=== PATIENT | male | born 1935 | race Caucasian/White ===

== ENCOUNTER 2017-02-20 21:16 | Emergency (ER) | payer MEDICARE, OTHER ==
[2017-02-20 21:39] VITALS: O2SAT 98
[2017-02-20] MEDS ORDERED: Sodium Chloride 0.9% 1000 ML 1,000 ML IV SCH (22:15)
--- NOTE | 2017-02-20 22:17 | ERPHSYRPT ---
- History of Present Illness Time Seen by Provider: 02/20/17 21:30 Source: patient, family Patient Subjective Stated Complaint: pt c/o low blood pressure and dizziness since dialysis today. states bp was low at dialysis and they gave him some extra fluid. Triage Nursing Assessment: pt alert and oriented, answers questions approp. pt arrive per ambulance and transfer to stretcher with assist of 3. moves well in bed. respirations nonlabored with lungs cta. pupisl equal and reactive. bilat upper and lower ext equal. colostomy to llq. dialysis fistula to lt upper arm with thrill and bruit present. Physician History: PATIENT WITH A HISTORY OF CHRONIC RENAL FAILURE, HEMODIALYSIS WITH COMPLAINS OF LOW BLOOD PRESSURE AND DIZZINESS UPON STANDING FOR THE PAST 3-4 MONTHS. REMAINS SYMPTOMATIC AFTER DIURETIC LASIX AND COREG DISCONTINUED. HAD DIALYSIS TODAY AND FEELS DIZZY AFTER STANDING. DENIES CHEST PAIN, HEADACHE, BLURRED VISION. Timing/Duration: constant (3-4 MONTHS) Severity: moderate Character of Deficits: other (DIZZINESS UPON STANDING) Deficits: decrease ability to stand Baseline/Normal Cognition: alert oriented x 3 Current Cognition: alert oriented x 3 Associated Symptoms: other (DIZZINESS UPON STANDING) Allergies/Adverse Reactions: Penicillins Allergy (Intermediate, Verified 01/25/14 08:30) ciprofloxacin [From Cipro] Adverse Reaction (Verified 02/20/17 21:39) Nausea and Vomiting Home Medications: Amitriptyline HCl 25 mg [Elavil 25 mg] 50 mg PO DAILY 01/25/14 [History] Escitalopram Oxalate 40 mg PO DAILY 01/25/14 [History] Lorazepam 0.5 mg [Ativan 0.5 MG] 1 tab PO TID PRN PRN 01/25/14 [History] Gabapentin [Neurontin] 100 mg PO HS 02/18/17 [History] Mv-Mn/Iron/Folic Acid/Herb 190 [Vitamin D3 Complete Caplet] 1 each PO WEEKLY 07/06 [History] B Complex W-C No.20/Folic Acid [Nephrocaps Softgel] 1 mg PO DAILY 02/20/17 [ History] Methocarbamol [Robaxin-750] 750 mg PO BID 02/20/17 [History] Omeprazole 20 MG [Prilosec 20 mg] 20 mg PO DAILY 02/20/17 [History] Sevelamer Carbonate [Renvela] 800 mg PO DAILY 02/20/17 [History] Hx Tetanus, Diphtheria Vaccination/Date Given: Yes Hx Influenza Vaccination/Date Given: No Hx Pneumococcal Vaccination/Date Given: No Immunizations Up to Date: Yes - Review of Systems Constitutional: No Fever, No Chills Eyes: No Symptoms Ears, Nose, & Throat: No Symptoms Respiratory: No Symptoms, No Cough, No Dyspnea Cardiac: No Symptoms, No Chest Pain, No Edema, No Syncope Abdominal/Gastrointestinal: No Symptoms, No Abdominal Pain, No Nausea, No Vomiting, No Diarrhea Genitourinary Symptoms: No Symptoms, No Dysuria Musculoskeletal: No Symptoms, No Back Pain, No Neck Pain Skin: No Symptoms, No Rash Neurological: No Dizziness (UPON STANDING), No Focal Weakness, No Sensory Changes Psychological: No Symptoms Endocrine: No Symptoms All Other Systems: Reviewed and Negative - Past Medical History Pertinent Past Medical History: Yes Neurological History: No Pertinent History ENT History: Cataracts Cardiac History: Coronary Artery Disease, High Cholesterol, Hypertension Respiratory History: No Pertinent History Endocrine Medical History: No Pertinent History Musculoskeletal History: Arthritis GI Medical History: Colorectal Cancer History: Renal Disease Psycho-Social History: No Pertinent History Male Reproductive Disorders: No Pertinent History - Past Surgical History Past Surgical History: Yes Neuro Surgical History: No Pertinent History Cardiac: CABG Respiratory: No Pertinent History Gastrointestinal: Appendectomy, Cholecystectomy, Colon Resection, Hernia Repair Genitourinary: No Pertinent History Musculoskeletal: No Pertinent History Male Surgical History: No Pertinent History - Social History Smoking Status: Never smoker Exposure to second hand smoke: No Drug Use: none Patient Lives Alone: No - Nursing Vital Signs Nursing Vital Signs: Initial Vital Signs Temperature 98.5 F 02/20/17 21:17 Pulse Rate 87 02/20/17 21:17 Respiratory Rate 16 02/20/17 21:17 Blood Pressure 117/49 02/20/17 21:17 O2 Sat by Pulse Oximetry 98 02/20/17 21:17 Pain Scale Pain Intensity 0 - Myesha Coma Scale Best Eye Response ([place]): (4) open spontaneously Best Verbal Response ([place]): (5) oriented Best Motor Response ([place]): (3) flexion to pain Myesha Total: 12 - Physical Exam General Appearance: no apparent distress Eye Exam: bilateral eye: normal inspection, PERRL Ears, Nose, Throat Exam: normal ENT inspection Neck Exam: normal inspection Respiratory: normal breath sounds Cardiovascular: regular rate/rhythm, normal heart sounds Gastrointestinal: soft, normal bowel sounds Male Genitalia: other (NONTENDER) Back Exam: normal inspection Extremity Exam: normal inspection Peripheral Pulses: carotid (R): 2+, carotid (L): 2+, femoral (R): 2+, femoral (L ): 2+, dorsalis-pedis (R): 2+, dorsalis-pedis (L): 2+ Mental Status: alert, oriented x 3 recreation establishment manager Exam: normal hearing, normal speech DTR: bicep (R): 2+, bicep (L): 2+, tricep (R): 2+, tricep (L): 2+, knee (R): 2+ , knee (L): 2+, ankle (R): 2+, ankle (L): 2+ Skin Exam: normal color SpO2 Interpretation: normal SpO2: 98 Oxygen Delivery: Room Air - Course EKG Interpreted by Me: RATE, NORMAL AXIS, Non-specific ST Changes ( INTRAVENTRICULAR CONDUCTION DELAY), Other (SINUS ARRHYTHMIA) - Radiology Exams Chest X-ray Interpretation: Interpreted by me (MILD CARDIOMEGALY, PREVIOUS STERNOTOMY , ELEVATION RIGHT HEMIDIAPHRAM) Ordered Tests: Active Orders 24 hr Category Date Time Status Assembler Tubing STAT Care 02/20/17 22:14 Active EKG-ER Only STAT Care 02/20/17 22:13 Active CHEST 1 VIEW (PORTABLE) Stat Exams 02/20/17 22:14 Taken CBC W DIFF Stat Lab 02/20/17 22:00 Completed CMP Stat Lab 02/20/17 22:00 Completed MAGNESIUM Stat Lab 02/20/17 22:00 Completed Manual Differential NC Stat Lab 02/20/17 22:00 Completed TROPONIN Q3H Lab 02/20/17 22:00 Completed TROPONIN Q3H Lab 02/21/17 01:15 Ordered TROPONIN Q3H Lab 02/21/17 04:15 Ordered TROPONIN Q3H Lab 02/21/17 07:15 Ordered TROPONIN Q3H Lab 02/21/17 10:15 Ordered Medication Summary Generic Name Dose Route Start Last Admin Trade Name Freq PRN Reason Stop Dose Admin Sodium Chloride 1,000 mls @ 100 mls/hr 02/20/17 22:15 02/20/17 22:50 Sodium Chloride 0.9% 1000 Ml IV 03/22/17 22:14 100 mls/hr .Q10H ROSITA Administration Discontinued Medications Generic Name Dose Route Start Last Admin Trade Name Freq PRN Reason Stop Dose Admin Midodrine 5 mg 02/20/17 23:04 Proamatine 5 Mg PO 02/20/17 23:05 STAT STA Lab/Rad Data: Laboratory Result Diagrams 02/20/17 22:00 02/20/17 22:00 Laboratory Results 02/20/17 02/20/17 02/20/17 Range/Units 22:00 22:00 22:00 WBC 8.7 (4.0-10.5) K/mm3 RBC 2.76 L (4.1-5.6) M/mm3 Hgb 11.2 L (12.5-18.0) gm/dl Hct 31.9 L (42-50) % MCV 115.6 H (78-100) fl MCH 40.5 H (26-32) pg MCHC 35.1 (32-36) g/dl RDW 16.3 H (11.5-14.0) % Plt Count 240 (150-450) K/mm3 MPV 10.1 H (6-9.5) fl Sodium 139 (136-145) mEq/L Potassium 3.8 (3.5-5.1) mEq/L Chloride 95 L (98-107) mEq/L Carbon Dioxide 32.2 H (21-32) mEq/L Anion Gap 16.0 H (5-15) MEQ/L BUN 18 (9-20) mg/dL Creatinine 3.99 H (0.55-1.30) mg/dl Estimated GFR 15 ML/MIN Glucose 200 H (70-110) MG/DL Calcium 9.2 (8.5-10.1) mg/dL Magnesium 1.8 (1.8-2.4) mg/dL Total Bilirubin 1.00 (0.2-1.0) mg/dL AST 42 H (15-37) U/L ALT 37 (12-78) U/L Alkaline Phosphatase 138 H (46-116) U/L Troponin I < 0.017 (0.000-0.056) ng/ml Serum Total Protein 7.2 (6.4-8.2) gm/dL Albumin 3.7 (3.4-5.0) g/dL - Progress Progress Note: 02/21/17 00:02 ADMINISTERED MIDODRINE 5MG ORALLY Will see patient in: other (DISCUSSED WITH DR ARRIAGA PATENT ENGINEER AT 2300 WHO RECOMMENDS MIDODRINE 5 MG TID FOR 2 WEEKS.) Counseled pt/family regarding: lab results, diagnosis, need for follow-up, rad results - Departure Time of Disposition: 00:10 Departure Disposition: Home Clinical Impression: Orthostatic hypotension dysautonomic syndrome, CHRONIC RENAL FAILURE Condition: Stable Critical Care Time: No Referrals: CALOS GORMAN [Primary Care Provider] - Additional Instructions: BEGIN MIDODRINE 5MG EVERY 8 HOURS TO HELP INCREASE BLOOD PRESSURE. CALL YOUR PATENT ENGINEER TODAY TO SCHEDULE APPOINTMENT. USE WHEELCHAIR ONLY WITH ASSISTANCE WITH STANDING. Prescriptions: Midodrine HCl 5 mg [Proamatine 5 mg] 5 mg PO TID #30 tablet
[2017-02-20 22:19] LABS: Mean Cell Volume 115.6 fl (78-100); Mean Platelet Volume 10.1 fl (6-9.5); Platelet Count 240 K/mm3 (150-450); Red Blood Count 2.76 M/mm3 (4.1-5.6); Red Cell Distribution Width 16.3 % (11.5-14.0); White Blood Count 8.7 K/mm3 (4.0-10.5)
[2017-02-20 22:28] LABS: ALBUMIN 3.7 g/dL (3.4-5.0); Carbon Dioxide 32.2 mEq/L (21-32); MAGNESIUM 1.8 mg/dL (1.8-2.4); Potassium 3.8 mEq/L (3.5-5.1); Total Protein 7.2 gm/dL (6.4-8.2)
[2017-02-20 22:37] LABS: Mean Corpuscular Hemoglobin 40.5 pg (26-32)
[2017-02-20] MEDS ORDERED: Sodium Chloride 0.9% 1000 ML 1,000 ML ONE (22:48)
[2017-02-20] MEDS ORDERED: PROAMATINE 5 MG PO STA (23:04)
[2017-02-21 00:37] VITALS: BP 117/54; PULSE 70
[2017-02-21 00:51] LABS: ANISOCYTOSIS 1+; Eosinophil 2 % (0.00-3.0); Macrocytosis 1+; Platelet Estimate NORMAL (NORMAL); Total Cells Counted 100
--- NOTE | 2017-02-21 09:21 | XRAY ---
Indication: Dizziness. Comparison: None Portable apical lordotic chest demonstrates blunting of the right costophrenic angle, a few calcified granulomas, and previous CABG surgery. Remaining lungs clear. Heart is not enlarged for AP portable technique. Bony thorax intact with mild osteopenia and degenerative changes. Impression: Nonacute chest.
== END 2017-02-21 00:40 | disposition home or self-care (01) ==
LOC: ED 21:16
DX: I95.1 Orthostatic hypotension (principal); N18.9 Chronic kidney disease, unspecified; R42 Dizziness and giddiness; Z99.2 Dependence on renal dialysis; Z79.899 Other long term (current) drug therapy; I10 Essential (primary) hypertension; E78.00 Pure hypercholesterolemia, unspecified; I25.10 Atherosclerotic heart disease of native coronary artery without angina pectoris; Z95.1 Presence of aortocoronary bypass graft
CPT/HCPCS: 36415; 71010; 80053; 83735; 84484; 85025; 93005; 93041; 96360; 96361; 99284; A9270-GY

== ENCOUNTER 2017-04-08 08:20 | Emergency (ER) | payer MEDICARE, OTHER ==
[2017-04-08] MEDS ORDERED: Zofran 4 MG/2 ML VIAL IV ONE (09:08)
[2017-04-08] MEDS ORDERED: Zofran 4 MG/2 ML VIAL ONE (09:13)
[2017-04-08 09:14] LABS: Lactic Acid 2.1 (0.4-2.0)
--- NOTE | 2017-04-08 09:22 | ERPHSYRPT ---
- History of Present Illness Time Seen by Provider: 04/08/17 09:01 Source: patient Exam Limitations: no limitations Patient Subjective Stated Complaint: pt states he has had vomiting for the past 1 week. pt states he feels nauseated. pt has a colostomy from colon cnacer and also takes kidney dialysis on Sat, Sat, Sat. Triage Nursing Assessment: pt ashen, warm, dry. abdomen soft non-tender. colostomy noted to left quad. pt afebrile. bowel sounds present. Physician History: 81 y/o male with history of colon cancer with colostomy and ESRD on HD Sat/Sat/ Sat comes to the ER with complaints of nausea and vomiting for the past week. Pt states he has been vomiting 3-4 times per day and twice this morning. Pt mentions he has occasional diffuse abdominal pain. Pt had HD yesterday and says he had a temperature of 94. Pt admits that he has had increase drainage of a right leg wound, left ankle wound and sacral decubitus ulcer since stopping vibramycin. Pt states that he has been having runny nose but denies any cough, shortness of breath, chest pain, cough, or urinary symptoms. Timing/Duration: day(s) Severity: mild Associated Symptoms: nausea, vomiting, abdominal pain Allergies/Adverse Reactions: Penicillins Allergy (Intermediate, Verified 04/08/17 08:29) ciprofloxacin [From Cipro] Adverse Reaction (Verified 04/08/17 08:29) Nausea and Vomiting Home Medications: Amitriptyline HCl 25 mg [Elavil 25 mg] 50 mg PO DAILY 01/25/14 [History] Escitalopram Oxalate 40 mg PO DAILY 01/25/14 [History] Lorazepam 0.5 mg [Ativan 0.5 MG] 1 tab PO TID PRN PRN 01/25/14 [History] Mv-Mn/Iron/Folic Acid/Herb 190 [Vitamin D3 Complete Caplet] 1 each PO WEEKLY 07/06 [History] Methocarbamol [Robaxin-750] 750 mg PO BID 02/20/17 [History] Omeprazole 20 MG [Prilosec 20 mg] 20 mg PO DAILY 02/20/17 [History] Sevelamer Carbonate [Renvela] 800 mg PO DAILY 02/20/17 [History] B Complex W-C No.20/Folic Acid [Triphrocaps Softgel] 1 mg DAILY 04/08/17 [ History] Lamotrigine 100 mg [lamICTAL 100MG TABLET] 100 mg BID 04/08/17 [History] Levothyroxine Sodium 75 Mcg [Synthroid 75 Mcg] 75 mcg DAILY 04/08/17 [ History] Tizanidine HCl 4 mg [Zanaflex 4 MG] 4 mg DAILY 04/08/17 [History] Hx Tetanus, Diphtheria Vaccination/Date Given: Yes (up to date) Hx Influenza Vaccination/Date Given: Yes Hx Pneumococcal Vaccination/Date Given: Yes Immunizations Up to Date: Yes - Review of Systems Constitutional: Chills, Malaise, Weakness, No Fever Eyes: No Symptoms Ears, Nose, & Throat: No Symptoms, Nose Discharge Respiratory: Dyspnea on Exertion ([place]), No Cough, No Dyspnea Cardiac: No Chest Pain, No Edema, No Syncope Abdominal/Gastrointestinal: Abdominal Pain, Nausea, Vomiting, No Diarrhea Genitourinary Symptoms: No Dysuria, No Frequency, No Hematuria Musculoskeletal: No Back Pain, No Neck Pain Skin: Cellulitis, Skin Lesions, No Rash Neurological: No Dizziness, No Focal Weakness, No Sensory Changes Psychological: No Symptoms Endocrine: No Symptoms All Other Systems: Reviewed and Negative - Past Medical History Pertinent Past Medical History: Yes Neurological History: No Pertinent History ENT History: Cataracts Cardiac History: Coronary Artery Disease, High Cholesterol, Hypertension Respiratory History: No Pertinent History Endocrine Medical History: No Pertinent History Musculoskeletal History: Arthritis GI Medical History: Colorectal Cancer History: Renal Disease Psycho-Social History: No Pertinent History Male Reproductive Disorders: No Pertinent History - Past Surgical History Past Surgical History: Yes Neuro Surgical History: No Pertinent History Cardiac: CABG Respiratory: No Pertinent History Gastrointestinal: Appendectomy, Cholecystectomy, Colon Resection, Hernia Repair Genitourinary: No Pertinent History Musculoskeletal: No Pertinent History Male Surgical History: No Pertinent History - Social History Smoking Status: Never smoker Exposure to second hand smoke: No Drug Use: none Patient Lives Alone: No - Nursing Vital Signs Nursing Vital Signs: Initial Vital Signs Temperature 98.6 F 04/08/17 08:38 Pulse Rate 94 H 04/08/17 08:38 Respiratory Rate 20 04/08/17 08:38 Blood Pressure 137/72 04/08/17 08:38 O2 Sat by Pulse Oximetry 97 04/08/17 08:38 Pain Scale Pain Intensity 0 - Physical Exam General Appearance: no apparent distress, alert, cachetic Eye Exam: PERRL/EOMI, eyes nml inspection Ears, Nose, Throat Exam: normal ENT inspection, TMs normal, pharynx normal, moist mucous membranes Neck Exam: normal inspection, non-tender, supple, full range of motion Respiratory Exam: normal breath sounds, lungs clear, No respiratory distress Cardiovascular Exam: regular rate/rhythm, normal heart sounds, normal peripheral pulses Gastrointestinal/Abdomen Exam: soft, normal bowel sounds, No tenderness, No mass Back Exam: normal inspection, normal range of motion, No CVA tenderness, No vertebral tenderness Extremity Exam: pelvis stable, swelling, tenderness Neurologic Exam: alert, oriented x 3, cooperative, normal mood/affect, nml cerebellar function, nml station & gait, sensation nml, No motor deficits Skin Exam: warm, dry, decubitus, ecchymosis, No rash Lymphatic Exam: No adenopathy SpO2: 97 Oxygen Delivery: Room Air - Course Nursing assessment & vital signs reviewed: Yes EKG Interpreted by Me: RATE, Left [place] Deviation (hr 86), Right Bundle Branch Block Ordered Tests: Active Orders 24 hr Category Date Time Status Pharmacology Teacher STAT Care 04/08/17 09:35 Active EKG-ER Only STAT Care 04/08/17 09:08 Active IV Insertion STAT Care 04/08/17 09:08 Active NPO (ED) STAT Care 04/08/17 09:08 Active ABDOMEN AND PELVIS W/0 CONTRAS [CT] Stat Exams 04/08/17 09:09 Completed CHEST 1 VIEW (PORTABLE) Stat Exams 04/08/17 09:09 Completed FOOT (MINIMUM 3 VIEWS) Stat Exams 04/08/17 Completed LOWER LEG Stat Exams 04/08/17 Completed AMYLASE Stat Lab 04/08/17 09:34 Completed BLOOD CULTURE Stat Lab 04/08/17 09:20 Received CBC W DIFF Stat Lab 04/08/17 09:34 Completed CMP Stat Lab 04/08/17 09:34 Completed CULTURE,WOUND Stat Lab 04/08/17 08:40 Received CULTURE,WOUND Stat Lab 04/08/17 09:40 Received CULTURE,WOUND Stat Lab 04/08/17 09:40 Received LIPASE Stat Lab 04/08/17 09:34 Completed Lactic Acid Stat Lab 04/08/17 09:08 Completed Lactic Acid Stat Lab 04/08/17 11:14 Completed TROPONIN Q3H Lab 04/08/17 09:34 Completed TROPONIN Q3H Lab 04/08/17 12:10 Received TROPONIN Q3H Lab 04/08/17 15:15 Ordered TROPONIN Q3H Lab 04/08/17 18:15 Ordered TROPONIN Q3H Lab 04/08/17 21:15 Ordered UA W/RFX UR CULTURE Stat Lab 04/08/17 09:09 Ordered Medication Summary Generic Name Dose Route Start Last Admin Trade Name Freq PRN Reason Stop Dose Admin Sodium Chloride 1,000 mls @ 150 mls/hr 04/08/17 11:30 04/08/17 11:38 Sodium Chloride 0.9% 1000 Ml IV 05/08/17 11:29 150 mls/hr .Q6H40M ROSITA Administration Vancomycin HCl 1 gm in 250 mls @ 167 mls/hr 04/08/17 11:26 04/08/17 11:38 Vancomycin 1gm/ Ns 250ml IV 04/08/17 12:55 167 mls/hr STAT ONE Administration Discontinued Medications Generic Name Dose Route Start Last Admin Trade Name Freq PRN Reason Stop Dose Admin Vancomycin HCl Confirm 04/08/17 11:35 Vancomycin 1gm/ Ns 250ml Administered 04/08/17 11:36 Dose 250 mls @ ud IV .STK-MED ONE Ondansetron HCl 4 mg 04/08/17 09:08 04/08/17 09:31 Zofran 4 Mg/2 Ml Vial IV 04/08/17 09:09 4 mg STAT ONE Administration Ondansetron HCl Confirm 04/08/17 09:13 Zofran 4 Mg/2 Ml Vial Administered 04/08/17 09:14 Dose 4 mg .ROUTE .STK-MED ONE Lab/Rad Data: Laboratory Result Diagrams 04/08/17 09:34 04/08/17 09:34 Laboratory Results 04/08/17 04/08/17 04/08/17 Range/Units 11:14 09:34 09:34 WBC (4.0-10.5) K/mm3 RBC (4.1-5.6) M/mm3 Hgb (12.5-18.0) gm/dl Hct (42-50) % MCV (78-100) fl MCH (26-32) pg MCHC (32-36) g/dl RDW (11.5-14.0) % Plt Count (150-450) K/mm3 MPV (6-9.5) fl Gran % (36.0-66.0) % Lymphocytes % (24.0-44.0) % Monocytes % (0.0-12.0) % Eosinophils % (0.00-5.0) % Basophils % (0.0-0.4) % Basophils # (0-0.4) Sodium (136-145) mEq/L Potassium (3.5-5.1) mEq/L Chloride (98-107) mEq/L Carbon Dioxide (21-32) mEq/L Anion Gap (5-15) MEQ/L BUN (9-20) mg/dL Creatinine (0.55-1.30) mg/dl Estimated GFR ML/MIN Glucose (70-110) MG/DL Lactic Acid 1.1 (0.4-2.0) Calcium (8.5-10.1) mg/dL Total Bilirubin (0.2-1.0) mg/dL AST (15-37) U/L ALT (12-78) U/L Alkaline Phosphatase (46-116) U/L Troponin I 0.041 (0.000-0.056) ng/ml Serum Total Protein (6.4-8.2) gm/dL Albumin (3.4-5.0) g/dL Amylase (25-115) U/L Lipase (73-393) U/L Influenza Type A Ag NEGATIVE (NEGATIVE) Influenza Type B Ag NEGATIVE (NEGATIVE) RSV (PCR) NEGATIVE (Negative) 04/08/17 04/08/17 04/08/17 Range/Units 09:34 09:34 09:08 WBC 9.3 (4.0-10.5) K/mm3 RBC 3.19 L (4.1-5.6) M/mm3 Hgb 12.1 L (12.5-18.0) gm/dl Hct 37.1 L (42-50) % MCV 116.3 H (78-100) fl MCH 37.9 H (26-32) pg MCHC 32.6 (32-36) g/dl RDW 15.4 H (11.5-14.0) % Plt Count 282 (150-450) K/mm3 MPV 9.9 H (6-9.5) fl Gran % 67.5 H (36.0-66.0) % Lymphocytes % 17.0 L (24.0-44.0) % Monocytes % 14.5 H (0.0-12.0) % Eosinophils % 0.7 (0.00-5.0) % Basophils % 0.3 (0.0-0.4) % Basophils # 0.03 (0-0.4) Sodium 139 (136-145) mEq/L Potassium 3.6 (3.5-5.1) mEq/L Chloride 95 L (98-107) mEq/L Carbon Dioxide 31.4 (21-32) mEq/L Anion Gap 16.3 H (5-15) MEQ/L BUN 26 H (9-20) mg/dL Creatinine 6.56 H (0.55-1.30) mg/dl Estimated GFR 9 ML/MIN Glucose 143 H (70-110) MG/DL Lactic Acid 2.1 H (0.4-2.0) Calcium 9.8 (8.5-10.1) mg/dL Total Bilirubin 0.70 (0.2-1.0) mg/dL AST 20 (15-37) U/L ALT 22 (12-78) U/L Alkaline Phosphatase 93 (46-116) U/L Troponin I (0.000-0.056) ng/ml Serum Total Protein 7.6 (6.4-8.2) gm/dL Albumin 3.4 (3.4-5.0) g/dL Amylase 64 (25-115) U/L Lipase 124 (73-393) U/L Influenza Type A Ag (NEGATIVE) Influenza Type B Ag (NEGATIVE) RSV (PCR) (Negative) - Progress Progress: improved Progress Note: 04/08/17 12:[address] abd/pelvis and CXR do not show any acute findings. The leg and foot xray do not show any signs of osteomyelitis. The flu and RSV are also negative. No white count but the lactic acid was initially 2.1. Urinalysis is pending but with the patient having multiple areas of possible cellulitis as well as a temperature of 94 from yesterday. Pt has been started on vancomycin. Pt has been accepted by hospitalist, Dr Morillo at [facility]. 04/08/17 12:15 - Departure Time of Disposition: 12:17 Departure Disposition: Transfer Clinical Impression: Cellulitis Qualifiers: Site of cellulitis: extremity Site of cellulitis of extremity: lower extremity Laterality: left Qualified Code(s): L03.116 - Cellulitis of left lower limb Condition: Stable Critical Care Time: Yes Critical Care Time(excluding separately billable procedures): 75-104 minutes Referrals: CALOS GORMAN [Primary Care Provider] -
[2017-04-08 09:47] LABS: BASOPHIL % 0.3 % (0.0-0.4); Eosinophil % 0.7 % (0.00-5.0); Granulocytes % 67.5 % (36.0-66.0); Mean Cell Volume 116.3 fl (78-100); Mean Corpuscular Hemoglobin 37.9 pg (26-32); Mean Platelet Volume 9.9 fl (6-9.5); Monocytes % 14.5 % (0.0-12.0); Platelet Count 282 K/mm3 (150-450); Red Blood Count 3.19 M/mm3 (4.1-5.6); Red Cell Distribution Width 15.4 % (11.5-14.0); White Blood Count 9.3 K/mm3 (4.0-10.5)
[2017-04-08 09:56] LABS: ALBUMIN 3.4 g/dL (3.4-5.0); ANION GAP 16.3 MEQ/L (5-15); BILIRUBIN,TOTAL 0.7 mg/dL (0.2-1.0); Carbon Dioxide 31.4 mEq/L (21-32); Potassium 3.6 mEq/L (3.5-5.1); Total Protein 7.6 gm/dL (6.4-8.2)
--- NOTE | 2017-04-08 10:09 | XRAY ---
Indication: Nausea and vomiting. Comparison: February 20, 2017. Portable chest clear again with a few incidental calcified granulomas. Heart is not enlarged again with previous CABG surgery. No new/acute findings.
--- NOTE | 2017-04-08 10:13 | XRAY ---
Indication: Nausea and vomiting. Multiple contiguous as images obtained through the abdomen and pelvis without contrast as ordered. Comparison: None Lung bases demonstrates mild bibasilar dependent atelectasis and right base calcified granuloma. Heart is not enlarged. Noncontrasted stomach and bowel loops appear nonobstructed with left lower quadrant diverting colostomy. No free fluid/air. Previous cholecystectomy. A few tiny calcified splenic granulomas. Both kidneys are atrophic with bilateral renal cysts. No free fluid/air. Remaining liver, pancreas, spleen, adrenal glands, kidneys, ureters, and bladder appear unremarkable for noncontrast exam. Moderate aortoiliac calcifications without AAA. Osseous structures intact with moderate degenerative changes throughout the spine. Bilateral L5 spondylolysis with 5 mm spondylolisthesis. Impression: 1. No acute intra-abdominal/pelvic abnormalities on this noncontrast exam. 2. Left lower quadrant colostomy without complications. 3. Bilateral renal atrophy, bilateral renal cysts, and bilateral L5 spondylolysis with grade 1 spondylolisthesis. CTDI 16.89
[2017-04-08] MEDS ORDERED: Vancomycin 1GM/ Ns 250ML*** 1 GM/250 ML IVPB IV ONE (11:26)
[2017-04-08] MEDS ORDERED: Sodium Chloride 0.9% 1000 ML 1,000 ML IV SCH (11:30)
[2017-04-08] MEDS ORDERED: Sodium Chloride 0.9% 1000 ML 1,000 ML ONE (11:34)
[2017-04-08] MEDS ORDERED: Vancomycin 1GM/ Ns 250ML*** 250 ML IV ONE (11:35)
--- NOTE | 2017-04-08 11:38 | XRAY ---
Indication: Pain.Osteomyelitis. Comparison:None 3 nonweightbearing views of the left foot demonstrates mild osteopenia and tiny heel spurs. No other bony, articular, or soft tissue abnormalities.
--- NOTE | 2017-04-08 11:38 | XRAY ---
Indication: Pain.Osteomyelitis. Comparison:None 2 views of the right lower leg demonstrates mild osteopenia, tiny heel spurs, and scattered vascular calcifications. No other bony, articular, or soft tissue abnormalities.
[2017-04-08] MEDS ORDERED: Sodium Chloride 0.9% 250 ML 250 ML IV SCH (12:30)
[2017-04-08 13:19] VITALS: BP 128/53; PULSE 85; O2SAT 95
== END 2017-04-08 13:40 ==
LOC: ED 08:20
DX: L03.116 Cellulitis of left lower limb (principal); R11.2 Nausea with vomiting, unspecified; Z93.3 Colostomy status; Z85.038 Personal history of other malignant neoplasm of large intestine; N18.6 End stage renal disease; Z99.2 Dependence on renal dialysis; Z79.899 Other long term (current) drug therapy
CPT/HCPCS: 36000; 36415; 71010; 73590; 73630; 74176; 80053; 82150; 83605; 83690; 84484; 85025; 87040; 87070; 87631; 93005; 93041; 96360; 96361; 96365; 96374; 99283; 99285; J2405; J3370

== ENCOUNTER 2017-08-05 18:07 | Emergency (ER) | payer MEDICARE, OTHER ==
[2017-08-05] MEDS ORDERED: PROVENTIL 2.5 MG/3 ML NEB IH ONE ×2 (18:23→18:59)
[2017-08-05] MEDS ORDERED: Lasix 40 MG/4 ML IV ONE (18:26)
--- NOTE | 2017-08-05 18:33 | ERPHSYRPT ---
- History of Present Illness Source: patient Exam Limitations: no limitations Patient Subjective Stated Complaint: PT states "I have this horrible cough all night and all day and I cannot lay down and It is just driving me crazy." Triage Nursing Assessment: Pt alert and oriented X 3, skin pwd. Pt ambulates without difficulty, able to speak in clear full sentences. PT due for dialysis today but did not go. he goes [facility]. Pt coughing intermittantly, dry cough. Timing/Duration: other (symptoms since last night) Severity: moderate Modifying Factors: Improves With: nothing Associated Symptoms: shortness of breath, cough, chest pain (pain in the anterior chest with couging), No nausea, No vomiting, No abdominal pain, No heartburn, No diaphoresis, No chills, No fever, No headaches, No loss of appetite, No malaise, No rash, No syncope, No seizure, No weakness Hx Tetanus, Diphtheria Vaccination/Date Given: Yes Hx Influenza Vaccination/Date Given: Yes Hx Pneumococcal Vaccination/Date Given: Yes Immunizations Up to Date: Yes <FELA BURCH - Last Filed: 08/05/17 19:22> <JUSTIN LACKEY - Last Filed: 08/05/17 20:52> - History of Present Illness Time Seen by Provider: 08/05/17 18:27 Physician History: This is a 82-year-old white male he arrives with complaint of feeling short of breath all night long since last night he states he is having pain in his anterior chest with coughing. He states he is unable to lay down secondary to his coughing and shortness of breath he has not had a fever. Patient does have a history of end-stage renal failure and is on dialysis last dialysis was last Saturday patient was scheduled for dialysis today but he did not go because he was not feeling well. He has not had a fever. Past medical history includes cataracts, coronary artery disease, hyperlipidemia , high blood pressure, colorectal cancer, end-stage renal failure on dialysis. Past surgical history includes CABG, appendectomy, cholecystectomy, colon resection, hernia repair. . (FELA BURCH) Allergies/Adverse Reactions: Penicillins Allergy (Intermediate, Verified 08/05/17 18:26) ciprofloxacin [From Cipro] Adverse Reaction (Verified 08/05/17 18:26) Nausea and Vomiting Home Medications: Amitriptyline HCl 25 mg [Elavil 25 mg] 50 mg PO DAILY 01/25/14 [History] Escitalopram Oxalate 40 mg PO DAILY 01/25/14 [History] Lorazepam 0.5 mg [Ativan 0.5 MG] 1 tab PO TID PRN PRN 01/25/14 [History] Mv-Mn/Iron/Folic Acid/Herb 190 [Vitamin D3 Complete Caplet] 1 each PO WEEKLY 07/06 [History] Omeprazole 20 MG [Prilosec 20 mg] 20 mg PO DAILY 02/20/17 [History] Levothyroxine Sodium 75 Mcg [Synthroid 75 Mcg] 75 mcg PO DAILY 04/08/17 [ History] Tizanidine HCl 4 mg [Zanaflex 4 MG] 4 mg PO DAILY 04/08/17 [History] Amlodipine Besylate [Amlodipine Besylate] 5 mg PO DAILY 08/05/17 [History] B Complex W-C No.20/Folic Acid [Triphrocaps Softgel] 1 mg PO DAILY 08/05/17 [ History] Cyproheptadine HCl 4 mg PO DAILY 08/05/17 [History] Temazepam 15 mg [Restoril 15 MG] 15 mg PO HS 08/05/17 [History] - Review of Systems Constitutional: No Fever, No Chills Eyes: No Symptoms Ears, Nose, & Throat: No Symptoms Respiratory: Cough, Dyspnea, Dyspnea on Exertion (RUBIO) Cardiac: Chest Pain (pain in anterior chest with coughing) Abdominal/Gastrointestinal: No Abdominal Pain, No Nausea, No Vomiting, No Diarrhea Genitourinary Symptoms: No Dysuria Musculoskeletal: No Back Pain, No Neck Pain Skin: No Rash Neurological: No Symptoms Psychological: No Symptoms Endocrine: No Symptoms All Other Systems: Reviewed and Negative <FELA BURCH - Last Filed: 08/05/17 19:22> - Past Medical History Pertinent Past Medical History: Yes Neurological History: No Pertinent History ENT History: Cataracts Cardiac History: Coronary Artery Disease, High Cholesterol, Hypertension Respiratory History: No Pertinent History Endocrine Medical History: No Pertinent History Musculoskeletal History: Arthritis GI Medical History: Colorectal Cancer History: Renal Disease Psycho-Social History: No Pertinent History Male Reproductive Disorders: No Pertinent History - Past Surgical History Past Surgical History: Yes Neuro Surgical History: No Pertinent History Cardiac: CABG Respiratory: No Pertinent History Gastrointestinal: Appendectomy, Cholecystectomy, Colon Resection, Hernia Repair Genitourinary: No Pertinent History Musculoskeletal: No Pertinent History Male Surgical History: No Pertinent History - Social History Smoking Status: Never smoker Exposure to second hand smoke: Yes Drug Use: none Patient Lives Alone: No <ROMEOFELALEY - Last Filed: 08/05/17 19:22> - Physical Exam General Appearance: moderate distress, other (well-developed well-nourished white male, persistant cough) Eye Exam: PERRL/EOMI, eyes nml inspection Ears, Nose, Throat Exam: normal ENT inspection, TMs normal, pharynx normal, moist mucous membranes Neck Exam: normal inspection, non-tender, supple, full range of motion Respiratory Exam: crackles/rales, rhonchi, wheezing Cardiovascular Exam: normal heart sounds, normal peripheral pulses, tachycardia Gastrointestinal/Abdomen Exam: soft, normal bowel sounds, No tenderness, No mass Back Exam: normal inspection, normal range of motion, No CVA tenderness, No vertebral tenderness Extremity Exam: normal inspection, normal range of motion, pelvis stable Neurologic Exam: alert, oriented x 3, cooperative, normal mood/affect, nml cerebellar function, nml station & gait, sensation nml, No motor deficits Skin Exam: normal color, warm, dry, No rash SpO2 Interpretation: normal (94%) SpO2: 94 Oxygen Delivery: Room Air <ROMEOFELA HYACINTH - Last Filed: 08/05/17 19:22> - Nursing Vital Signs Nursing Vital Signs: Initial Vital Signs Temperature 99.1 F 08/05/17 18:17 Pulse Rate 114 H 08/05/17 18:17 Respiratory Rate 22 08/05/17 18:17 Blood Pressure 145/79 08/05/17 18:17 O2 Sat by Pulse Oximetry 94 L 08/05/17 18:17 Pain Scale Pain Intensity 0 - Course Nursing assessment & vital signs reviewed: Yes EKG Interpreted by Me: RATE (115 bpm), Sinus Tach, LAFB, Right Bundle Branch Block, Other (EKG sinus tachycardia,, 115 bpm, left axis deviation, complete right bundle branch block, no acute ST or T wave changes as compared to april 08 2017) - Radiology Exams Chest X-ray Interpretation: Interpreted by me, Other (increased interstitial lung markings bilaterally) <FELA BURCH - Last Filed: 08/05/17 19:22> Ordered Tests: Active Orders 24 hr Category Date Time Status Clay Caster STAT Care 08/05/17 18:24 Active EKG-ER Only STAT Care 08/05/17 18:23 Active IV Insertion STAT Care 08/05/17 18:23 Active CHEST 1 VIEW (PORTABLE) Stat Exams 08/05/17 18:37 Taken CBC W DIFF Stat Lab 08/05/17 18:54 Completed CMP Stat Lab 08/05/17 18:54 Completed NT PRO BNP Stat Lab 08/05/17 18:54 Completed TROPONIN Q3H Lab 08/05/17 18:54 Completed TROPONIN Q3H Lab 08/05/17 21:30 Ordered TROPONIN Q3H Lab 08/06/17 00:30 Ordered TROPONIN Q3H Lab 08/06/17 03:30 Ordered TROPONIN Q3H Lab 08/06/17 06:30 Ordered VENOUS BLOOD GAS Stat Lab 08/05/17 19:17 Completed Respiratory Nebulizer STAT RT 08/05/17 18:25 Completed Medication Summary Discontinued Medications Generic Name Dose Route Start Last Admin Trade Name Freq PRN Reason Stop Dose Admin Albuterol Sulfate 2.5 mg 08/05/17 18:23 08/05/17 19:03 Proventil 2.5 Mg/3 Ml Neb IH 08/05/17 18:24 2.5 mg STAT ONE Administration Albuterol Sulfate Confirm 08/05/17 18:59 Proventil 2.5 Mg/3 Ml Neb Administered 08/05/17 19:00 Dose 2.5 mg IH .STK-MED ONE Furosemide 40 mg 08/05/17 18:26 08/05/17 18:45 Lasix 40 Mg/4 Ml IV 08/05/17 18:27 40 mg STAT ONE Administration Furosemide Confirm 08/05/17 18:44 Lasix 40 Mg/4 Ml Administered 08/05/17 18:45 Dose 40 mg .ROUTE .STK-MED ONE Lab/Rad Data: Laboratory Result Diagrams 08/05/17 18:54 08/05/17 18:54 Laboratory Results 08/05/17 08/05/17 08/05/17 Range/Units 19:17 18:54 18:54 WBC (4.0-10.5) K/mm3 RBC (4.1-5.6) M/mm3 Hgb (12.5-18.0) gm/dl Hct (42-50) % MCV (78-100) fl MCH (26-32) pg MCHC (32-36) g/dl RDW (11.5-14.0) % Plt Count (150-450) K/mm3 MPV (6-9.5) fl Gran % (36.0-66.0) % Lymphocytes % (24.0-44.0) % Monocytes % (0.0-12.0) % Eosinophils % (0.00-5.0) % Basophils % (0.0-0.4) % Basophils # (0-0.4) VBG pH 7.43 H (7.32-7.42) VBG pCO2 at Pat Temp 40 L (42-55) mm/Hg VBG pO2 at Pat Temp 60 H (25-40) mm/Hg VBG HCO3 26.5 (22-28) meq/L VBG O2 Sat (Clint) 93.9 L (95-100) VBG Base Excess 2.0 (-2.0-2.0) VBG Hemoglobin 11.0 VBG Carboxyhemoglobin 5.4 (0.0-6.9) % T HGB POC Potassium 6.1 H* (3.5-5.1) Sodium 137 (137-145) mmol/L Potassium 5.0 (3.5-5.1) mmol/L Chloride 97 L (98-107) mmol/L Carbon Dioxide 23 (22-30) mmol/L Anion Gap 22.8 H (5-15) MEQ/L BUN 67 H (9-20) mg/dL Creatinine 9.64 H (0.66-1.25) mg/dL Estimated GFR 6 ML/MIN Glucose 155 H (74-106) mg/dL Calcium 9.6 (8.4-10.2) mg/dL Total Bilirubin 0.80 (0.2-1.3) mg/dL AST 42 (17-59) U/L ALT 19 (0-50) U/L Alkaline Phosphatase 111 (38-126) U/L Troponin I 0.530 H* (0.000-0.034) ng/mL NT-Pro-B Natriuret Pep > 42875 H (0-1800) pg/mL Serum Total Protein 6.8 (6.3-8.2) g/dL Albumin 3.9 (3.5-5.0) g/dL 08/05/17 Range/Units 18:54 WBC 15.0 H (4.0-10.5) K/mm3 RBC 3.16 L (4.1-5.6) M/mm3 Hgb 11.2 L (12.5-18.0) gm/dl Hct 34.3 L (42-50) % MCV 108.5 H (78-100) fl MCH 35.4 H (26-32) pg MCHC 32.7 (32-36) g/dl RDW 14.8 H (11.5-14.0) % Plt Count 219 (150-450) K/mm3 MPV 10.7 H (6-9.5) fl Gran % 72.8 H (36.0-66.0) % Lymphocytes % 16.2 L (24.0-44.0) % Monocytes % 9.3 (0.0-12.0) % Eosinophils % 1.4 (0.00-5.0) % Basophils % 0.3 (0.0-0.4) % Basophils # 0.04 (0-0.4) VBG pH (7.32-7.42) VBG pCO2 at Pat Temp (42-55) mm/Hg VBG pO2 at Pat Temp (25-40) mm/Hg VBG HCO3 (22-28) meq/L VBG O2 Sat (Clint) (95-100) VBG Base Excess (-2.0-2.0) VBG Hemoglobin VBG Carboxyhemoglobin (0.0-6.9) % T HGB POC Potassium (3.5-5.1) Sodium (137-145) mmol/L Potassium (3.5-5.1) mmol/L Chloride (98-107) mmol/L Carbon Dioxide (22-30) mmol/L Anion Gap (5-15) MEQ/L BUN (9-20) mg/dL Creatinine (0.66-1.25) mg/dL Estimated GFR ML/MIN Glucose (74-106) mg/dL Calcium (8.4-10.2) mg/dL Total Bilirubin (0.2-1.3) mg/dL AST (17-59) U/L ALT (0-50) U/L Alkaline Phosphatase (38-126) U/L Troponin I (0.000-0.034) ng/mL NT-Pro-B Natriuret Pep (0-1800) pg/mL Serum Total Protein (6.3-8.2) g/dL Albumin (3.5-5.0) g/dL <FELA BURCH - Last Filed: 08/05/17 19:22> - Progress Progress: improved Counseled pt/family regarding: lab results, diagnosis, rad results <JUSTIN LACKEY - Last Filed: 08/05/17 20:52> - Progress Progress Note: 08/05/17 19:21 Dr Lackey will assume care of this patient due to shift change. The patient was discussed with Dr Lackey. (FELA BURCH) 08/05/17 19:43 Pt care discussed and care accepted from Dr Burch at 19:00. (JUSTIN LACKEY) <FELA BURCH - Last Filed: 08/05/17 19:22> - Departure Time of Disposition: 20:52 Departure Disposition: Transfer (Transfer to [facility] per DR Pavon ) Critical Care Time: No <JUSTIN LACKEY - Last Filed: 08/05/17 20:52> - Departure Clinical Impression: Renal failure, CHF (congestive heart failure) Condition: Stable Referrals: CALOS GORMAN [Primary Care Provider] - Instructions: Heart Failure
[2017-08-05] MEDS ORDERED: Lasix 40 MG/4 ML ONE (18:44)
[2017-08-05 18:57] LABS: BASOPHIL % 0.3 % (0.0-0.4); Basophil (Absolute #) 0.04 (0-0.4); Eosinophil % 1.4 % (0.00-5.0); Eosinophil (Absolute #) 0.21 (0-0.5); Granulocyte Absolute (ANC) 10.95 (1.4-6.9); Granulocytes % 72.8 % (36.0-66.0); Hematocrit 34.3 % (42-50); Hemoglobin 11.2 gm/dl (12.5-18.0); Lymphocyte (Absolute #) 2.44 (1.0-4.6); Lymphocytes % 16.2 % (24.0-44.0); Mean Cell Volume 108.5 fl (78-100); Mean Corpuscular Hemoglobin 35.4 pg (26-32); Mean Corpuscular Hgb Concent. 32.7 g/dl (32-36); Mean Platelet Volume 10.7 fl (6-9.5); Monocytes % 9.3 % (0.0-12.0); Platelet Count 219 K/mm3 (150-450); Red Blood Count 3.16 M/mm3 (4.1-5.6); Red Cell Distribution Width 14.8 % (11.5-14.0)
[2017-08-05 19:13] LABS: ALBUMIN 3.9 g/dL (3.5-5.0); ALKALINE PHOSPHATASE 111 U/L (38-126); ANION GAP 22.8 MEQ/L (5-15); BLOOD UREA NITROGEN 67 mg/dL (9-20); CHLORIDE 97 mmol/L (98-107); Calcium 9.6 mg/dL (8.4-10.2); Carbon Dioxide 23 mmol/L (22-30); Creatinine 1 9.64 mg/dL (0.66-1.25); Glucose 155 mg/dL (74-106); SGOT/AST 42 U/L (17-59); SGPT/ALT 19 U/L (0-50); SODIUM 137 mmol/L (137-145); Total Protein 6.8 g/dL (6.3-8.2)
[2017-08-05 19:21] LABS: NT PRO BNP > 35000 pg/mL (0-1800)
[2017-08-05 19:27] LABS: VBG CARBOXYHEMOGLOBIN 5.4 % T HGB (0.0-6.9); VBG HCO3- 26.5 meq/L (22-28); VBG O2 SATURATION 93.9 (95-100); VBG pH 7.43 (7.32-7.42)
[2017-08-05 19:28] LABS: VBG POTASSIUM 6.1 (3.5-5.1)
[2017-08-05 21:29] VITALS: O2SAT 96
[2017-08-05] MEDS ORDERED: Zofran 4 MG/2 ML VIAL ONE (21:56)
[2017-08-05] MEDS ORDERED: Zofran 4 MG/2 ML VIAL IV ONE (22:02)
[2017-08-05 22:17] VITALS: BP 133/84; PULSE 110
--- NOTE | 2017-08-06 08:40 | XRAY ---
Indication: Cough and short of breath. Comparison: April 08, 2017. Portable chest demonstrates new bilateral patchy interstitial alveolar opacities with small effusions, right greater than left. Heart is not enlarged and again demonstrates previous CABG surgery. Bony thorax intact again with mild osteopenia and degenerative changes.
== END 2017-08-05 22:18 | disposition short-term general hospital (02) ==
LOC: ED 18:07
DX: I12.0 Hypertensive chronic kidney disease with stage 5 chronic kidney disease or end stage renal disease (principal); N18.6 End stage renal disease; Z99.2 Dependence on renal dialysis; I50.9 Heart failure, unspecified; I25.810 Atherosclerosis of coronary artery bypass graft(s) without angina pectoris; E78.5 Hyperlipidemia, unspecified; Z85.038 Personal history of other malignant neoplasm of large intestine; Z90.49 Acquired absence of other specified parts of digestive tract; Z79.899 Other long term (current) drug therapy
CPT/HCPCS: 36415; 71045; 80053; 82805; 83880; 84484; 85025; 93005; 93041; 94150; 94640; 96365; 96374; 96375; 99285; J1940; J2405; A9270-GY